=== PATIENT | male | born 1965 | race Caucasian/White ===

== ENCOUNTER 2021-06-28 07:45 | Inpatient (IN) | payer MEDICAID ==
[~2021-06-28] VITALS: Ht 172.7 cm; Wt 84.8 kg
[2021-06-28] VITALS (70 sets, daily range): BP systolic 82–126; BP diastolic 43–95
[~2021-06-28 07:45] MED LIST: AMLO10TA80 MT; FURO-151 MT; GABA-532 PO; GLIP10TA3 PO; HYDR100T26 MT; METF-874 PO
[2021-06-28] MEDS: IPRATROPIUM/ALBUTEROL 0.5-3(2.5)MG/3ML NEB HHN SCH ×4 (08:25→21:20)
[2021-06-28] MEDS ORDERED: IPRATROPIUM/ALBUTEROL 0.5-3(2.5)MG/3ML NEB HHN PRN (08:30)
[2021-06-28] MEDS ORDERED: MIDAZOLAM HCL 100 MG in SODIUM CHLORIDE 0.9% 80 ML IV PRN (09:00)
[2021-06-28] MEDS ORDERED: HEPARIN SODIUM 1,000 UNIT/1ML VIAL IV SCH (09:45)
[2021-06-28] MEDS ORDERED: ONDANSETRON HCL 4MG/2ML INJ IV PRN (10:00)
[2021-06-28] MEDS ORDERED: ACETAMINOPHEN 325MG TABLET PO PRN (10:00)
[2021-06-28] MEDS: MIDAZOLAM 100MG/100ML PMX 100 ML IV PRN (10:03)
[2021-06-28] MEDS: PHENYLEPHRINE 100 MG in DEXT 5% WATER 240 ML IV PRN ×3 (10:04→23:27)
[2021-06-28] MEDS: FENTANYL CITRATE/PF 2,500 MCG in SODIUM CHLORIDE 0.9% 200 ML IV PRN (10:04)
[2021-06-28 10:12] LABS: HEMATOCRIT. 29.9 % (42.0-52.0); HEMOGLOBIN. 9.9 g/dL (14.0-18.0); MEAN CORPUSCULAR HEMOGLOBIN 30.1 pg (28.0-32.0); MEAN CORPUSCULAR VOLUME 90.5 fL (80.0-94.0); MEAN PLATELET VOLUME 7.3 fl (7.4-10.4); PLATELET 256 x1000/uL (130-400); RED BLOOD CELL COUNT 3.31 mill/uL (4.7-6.1)
[2021-06-28] MEDS: BLOOD SUGAR DIAGNOSTIC STRIP TEST SCH ×3 (11:30→20:21)
[2021-06-28] MEDS: INSULIN LISPRO 100 UNITS/ML SUBCUT SCH ×3 (12:00→21:00)
[2021-06-28 12:05] LABS: PLATELET ESTIMATE NORMAL
[2021-06-28] MEDS: PANTOPRAZOLE SODIUM 40 MG/VIAL IV SCH (12:17)
[2021-06-28 12:28] LABS: BG BASE EXCESS -3.5 mmol/L (-2.0-2.0); BG CARBOXYHEMOGLOBIN 0.5 % (0.5-1.5); BG DEOXYHEMOGLOBIN 5.9 % (0.0-5.0); BG FRACTION INSPIRED OXYGEN 100; BG HCO3 ACT 26.1 mmol/L (22.0-26.0); BG METHEMOGLOBIN 0.2 % (0.0-1.5); BG OXYGEN SATURATION 94.1 % (92.0-98.5); BG OXYHEMOGLOBIN 93.4 % (94.0-97.0); BG PCO2 75.6 mmHg (35.0-45.0); BG PH 7.156 (7.350-7.450); BG PO2 82.4 mmHg (75.0-100.0); BG SAMPLE SITE RIGHT RADIAL; BG TOTAL HEMOGLOBIN 10.2 g/dL (12.0-18.0); BG VENT MODE VENT - AC
[2021-06-28] MEDS: DEXTROSE 50% WATER 50ML SYRINGE IV PRN ×2 (12:28→17:30)
[2021-06-28 13:07] LABS: CHLORIDE 112 mEq/L (98-107)
[2021-06-28] MEDS ORDERED: PIPERACILLIN/TAZOBACTAM 3.375 G in DEXTROSE 5% WATER 50 ML IV SCH (14:00)
[2021-06-28] MEDS: PIPERACILLIN/TAZOBACTAM 3.375 G in DEXTROSE 5% WATER 50 ML IV SCH ×2 (14:45→20:20)
[2021-06-28 15:39] LABS: BG BASE EXCESS -0.3 mmol/L (-2.0-2.0); BG CARBOXYHEMOGLOBIN 0.3 % (0.5-1.5); BG DEOXYHEMOGLOBIN 7.7 % (0.0-5.0); BG FRACTION INSPIRED OXYGEN 100; BG HCO3 ACT 27.8 mmol/L (22.0-26.0); BG METHEMOGLOBIN 0.8 % (0.0-1.5); BG OXYGEN SATURATION 92.2 % (92.0-98.5); BG OXYHEMOGLOBIN 91.2 % (94.0-97.0); BG PCO2 68.6 mmHg (35.0-45.0); BG PH 7.226 (7.350-7.450); BG PO2 69.2 mmHg (75.0-100.0); BG SAMPLE SITE RIGHT RADIAL; BG TOTAL HEMOGLOBIN 8.3 g/dL (12.0-18.0); BG VENT MODE VENT - AC
[2021-06-28] MEDS ORDERED: NOREPINEPHRINE 32 MG in DEXT 5% WATER 218 ML IV PRN (20:00)
[2021-06-28] MEDS: DEXT 5%/0.45% NACL 1000ML 1,000 ML IV SCH (20:21)
[2021-06-29] VITALS (96 sets, daily range): BP systolic 89–190; BP diastolic 40–90
[2021-06-29] MEDS: IPRATROPIUM/ALBUTEROL 0.5-3(2.5)MG/3ML NEB HHN SCH ×6 (00:39→20:44)
[2021-06-29] MEDS: FENTANYL CITRATE/PF 2,500 MCG in SODIUM CHLORIDE 0.9% 200 ML IV PRN (05:03)
[2021-06-29] MEDS: PHENYLEPHRINE 100 MG in DEXT 5% WATER 240 ML IV PRN ×2 (05:03→15:51)
[2021-06-29] MEDS: DEXTROSE 50% WATER 50ML SYRINGE IV PRN (05:49)
[2021-06-29] MEDS: INSULIN LISPRO 100 UNITS/ML SUBCUT SCH ×4 (06:10→20:47)
[2021-06-29] MEDS: BLOOD SUGAR DIAGNOSTIC STRIP TEST SCH ×4 (06:10→20:30)
[2021-06-29 06:11] LABS: HEMATOCRIT. 25.6 % (42.0-52.0); HEMOGLOBIN. 8.3 g/dL (14.0-18.0); MEAN CORPUSCULAR HEMOGLOBIN 29.6 pg (28.0-32.0); MEAN CORPUSCULAR VOLUME 91.2 fL (80.0-94.0); MEAN PLATELET VOLUME 8.4 fl (7.4-10.4); PLATELET 184 x1000/uL (130-400); RED BLOOD CELL COUNT 2.81 mill/uL (4.7-6.1); RED CELL DISTRIBUTION WIDTH 16.1 % (11.6-14.6)
[2021-06-29] MEDS ORDERED: LIDOCAINE HCL 1% 10 MG/ML 10ML VIAL ONE (07:43)
[2021-06-29 09:00] LABS: HEPATITIS B SURFACE ANTIGEN NEGATIVE
[2021-06-29 10:50] LABS: PLATELET ESTIMATE NORMAL
[2021-06-29] MEDS ORDERED: VANCOMYCIN 1,750 MG in DEXT 5% WATER 250 ML IV NR (11:00)
[2021-06-29] MEDS: PANTOPRAZOLE SODIUM 40 MG/VIAL IV SCH (12:19)
[2021-06-29] MEDS: PIPERACILLIN/TAZOBACTAM 3.375 G in DEXTROSE 5% WATER 50 ML IV SCH ×2 (12:19→20:30)
[2021-06-29] MEDS: METHYLPREDNISOLONE SOD SUCC 40 MG/ML VIAL IV SCH ×3 (12:19→21:06)
[2021-06-29 12:41] LABS: BG BASE EXCESS -3.3 mmol/L (-2.0-2.0); BG CARBOXYHEMOGLOBIN 0.1 % (0.5-1.5); BG FRACTION INSPIRED OXYGEN 80; BG HCO3 ACT 25.1 mmol/L (22.0-26.0); BG METHEMOGLOBIN 0.1 % (0.0-1.5); BG OXYHEMOGLOBIN 96.8 % (94.0-97.0); BG PCO2 64.1 mmHg (35.0-45.0); BG PO2 94.1 mmHg (75.0-100.0); BG SAMPLE SITE LEFT RADIAL; BG TOTAL HEMOGLOBIN 9.4 g/dL (12.0-18.0); BG VENT MODE VENT - AC
[2021-06-29] MEDS: DEXT 5%/0.45% NACL 1000ML 1,000 ML IV SCH (20:30)
[2021-06-29] MEDS: FENTANYL 2500MCG/250ML PMX 250 ML IV PRN (22:44)
[2021-06-29] MEDS: MIDAZOLAM 100MG/100ML PMX 100 ML IV PRN (22:45)
[2021-06-30] VITALS (85 sets, daily range): BP systolic 73–204; BP diastolic 38–121
[2021-06-30] MEDS: IPRATROPIUM/ALBUTEROL 0.5-3(2.5)MG/3ML NEB HHN SCH ×4 (00:29→20:58)
[2021-06-30] MEDS: BLOOD SUGAR DIAGNOSTIC STRIP TEST SCH ×2 (05:32→21:31)
[2021-06-30 05:50] LABS: HEMATOCRIT. 21.9 % (42.0-52.0); HEMOGLOBIN. 7.1 g/dL (14.0-18.0); MEAN CORPUSCULAR HEMOGLOBIN 29.2 pg (28.0-32.0); MEAN CORPUSCULAR VOLUME 89.4 fL (80.0-94.0); RED BLOOD CELL COUNT 2.45 mill/uL (4.7-6.1); RED CELL DISTRIBUTION WIDTH 16.6 % (11.6-14.6)
[2021-06-30] MEDS: METHYLPREDNISOLONE SOD SUCC 40 MG/ML VIAL IV SCH ×3 (06:10→21:32)
[2021-06-30] MEDS: INSULIN LISPRO 100 UNITS/ML SUBCUT SCH ×4 (06:15→21:00)
[2021-06-30 06:23] LABS: T4 FREE 0.59 ng/dL (0.76-1.46)
[2021-06-30 07:56] LABS: MEAN PLATELET VOLUME 8.4 fl (7.4-10.4); PLATELET 127 x1000/uL (130-400)
[2021-06-30] MEDS: PIPERACILLIN/TAZOBACTAM 3.375 G in DEXTROSE 5% WATER 50 ML IV SCH ×2 (08:50→20:00)
[2021-06-30] MEDS: PANTOPRAZOLE SODIUM 40 MG/VIAL IV SCH (08:51)
[2021-06-30 09:11] LABS: BG BASE EXCESS -2.5 mmol/L (-2.0-2.0); BG CARBOXYHEMOGLOBIN 0.8 % (0.5-1.5); BG DEOXYHEMOGLOBIN 1.8 % (0.0-5.0); BG FRACTION INSPIRED OXYGEN 60; BG HCO3 ACT 23.6 mmol/L (22.0-26.0); BG METHEMOGLOBIN 0.6 % (0.0-1.5); BG OXYGEN SATURATION 98.2 % (92.0-98.5); BG OXYHEMOGLOBIN 96.8 % (94.0-97.0); BG PCO2 47.1 mmHg (35.0-45.0); BG PH 7.317 (7.350-7.450); BG PO2 117.4 mmHg (75.0-100.0); BG SAMPLE SITE RIGHT RADIAL; BG TOTAL HEMOGLOBIN 7.8 g/dL (12.0-18.0); BG VENT MODE VENT - AC
[2021-06-30] MEDS: MIDODRINE HCL 5MG TABLET PO SCH (11:33)
[2021-06-30] MEDS ORDERED: VANCOMYCIN 750MG PMX (XELLIA) 150 ML IV SCH (18:00)
[2021-06-30 18:59] LABS: HEMATOCRIT 26.7 % (42.0-52.0); HEMOGLOBIN 8.6 g/dL (14.0-18.0); MEAN CORPUSCULAR HEMOGLOBIN 29.5 pg (28.0-32.0); MEAN CORPUSCULAR VOLUME 91.4 fL (80.0-94.0); PLATELET 131 x1000/uL (130-400); RED BLOOD CELL COUNT 2.92 mill/uL (4.7-6.1); RED CELL DISTRIBUTION WIDTH 16.2 % (11.6-14.6)
[2021-06-30] MEDS: DEXT 5%/0.45% NACL 1000ML 1,000 ML IV SCH (20:00)
[2021-06-30] MEDS: FENTANYL 2500MCG/250ML PMX 250 ML IV PRN (20:00)
[2021-07-01] VITALS (96 sets, daily range): BP systolic 86–178; BP diastolic 53–96
[2021-07-01] MEDS: IPRATROPIUM/ALBUTEROL 0.5-3(2.5)MG/3ML NEB HHN SCH ×6 (01:01→20:12)
[2021-07-01] MEDS: MIDODRINE HCL 5MG TABLET PO SCH ×5 (02:18→22:00)
[2021-07-01 04:53] LABS: HEMATOCRIT. 24.9 % (42.0-52.0); HEMOGLOBIN. 8.2 g/dL (14.0-18.0); MEAN CORPUSCULAR HEMOGLOBIN 29.1 pg (28.0-32.0); MEAN CORPUSCULAR VOLUME 88.5 fL (80.0-94.0); MEAN PLATELET VOLUME 8.9 fl (7.4-10.4); PLATELET 134 x1000/uL (130-400); RED BLOOD CELL COUNT 2.82 mill/uL (4.7-6.1); RED CELL DISTRIBUTION WIDTH 16.2 % (11.6-14.6)
[2021-07-01] MEDS: METHYLPREDNISOLONE SOD SUCC 40 MG/ML VIAL IV SCH ×3 (05:51→21:09)
[2021-07-01] MEDS: BLOOD SUGAR DIAGNOSTIC STRIP TEST SCH ×4 (06:15→23:41)
[2021-07-01] MEDS: INSULIN LISPRO 100 UNITS/ML SUBCUT SCH ×4 (06:16→23:41)
[2021-07-01 07:04] LABS: PLATELET ESTIMATE NORMAL
[2021-07-01] MEDS: PIPERACILLIN/TAZOBACTAM 3.375 G in DEXTROSE 5% WATER 50 ML IV SCH ×2 (08:30→21:14)
[2021-07-01] MEDS: PANTOPRAZOLE SODIUM 40 MG/VIAL IV SCH (08:30)
[2021-07-01] MEDS: MIDAZOLAM 100MG/100ML PMX 100 ML IV PRN (08:31)
[2021-07-01 09:04] LABS: BG BASE EXCESS -1.3 mmol/L (-2.0-2.0); BG CARBOXYHEMOGLOBIN 0.3 % (0.5-1.5); BG FRACTION INSPIRED OXYGEN 60; BG HCO3 ACT 23.6 mmol/L (22.0-26.0); BG METHEMOGLOBIN 0.1 % (0.0-1.5); BG OXYHEMOGLOBIN 98.6 % (94.0-97.0); BG PCO2 40.3 mmHg (35.0-45.0); BG PH 7.385 (7.350-7.450); BG PO2 158.7 mmHg (75.0-100.0); BG SAMPLE SITE RIGHT RADIAL; BG TOTAL HEMOGLOBIN 8.7 g/dL (12.0-18.0); BG VENT MODE VENT - AC-vc
[2021-07-01] MEDS: FENTANYL 2500MCG/250ML PMX 250 ML IV PRN ×2 (10:00→23:47)
[2021-07-01] MEDS ORDERED: LIDOCAINE HCL 1% 10 MG/ML 10ML VIAL ONE (11:08)
[2021-07-02] VITALS (94 sets, daily range): BP systolic 87–186; BP diastolic 51–99
[2021-07-02] MEDS: IPRATROPIUM/ALBUTEROL 0.5-3(2.5)MG/3ML NEB HHN SCH ×6 (00:15→20:27)
[2021-07-02 05:30] LABS: HEMATOCRIT. 28.7 % (42.0-52.0); HEMOGLOBIN. 9.5 g/dL (14.0-18.0); MEAN CORPUSCULAR HEMOGLOBIN 29.5 pg (28.0-32.0); MEAN CORPUSCULAR VOLUME 89.2 fL (80.0-94.0); MEAN PLATELET VOLUME 9.1 fl (7.4-10.4); PLATELET 131 x1000/uL (130-400); RED BLOOD CELL COUNT 3.21 mill/uL (4.7-6.1); RED CELL DISTRIBUTION WIDTH 15.9 % (11.6-14.6)
[2021-07-02] MEDS: METHYLPREDNISOLONE SOD SUCC 40 MG/ML VIAL IV SCH ×3 (05:30→21:22)
[2021-07-02] MEDS: BLOOD SUGAR DIAGNOSTIC STRIP TEST SCH ×4 (05:31→23:36)
[2021-07-02] MEDS: MIDODRINE HCL 5MG TABLET PO SCH ×3 (05:31→21:22)
[2021-07-02] MEDS: INSULIN LISPRO 100 UNITS/ML SUBCUT SCH ×4 (05:31→23:37)
[2021-07-02 07:44] LABS: BG CARBOXYHEMOGLOBIN 0.1 % (0.5-1.5); BG DEOXYHEMOGLOBIN 1.5 % (0.0-5.0); BG HCO3 ACT 21.6 mmol/L (22.0-26.0); BG METHEMOGLOBIN 0.3 % (0.0-1.5); BG OXYGEN SATURATION 98.5 % (92.0-98.5); BG OXYHEMOGLOBIN 98.1 % (94.0-97.0); BG PCO2 41.6 mmHg (35.0-45.0); BG PH 7.333 (7.350-7.450); BG SAMPLE SITE RIGHT RADIAL; BG TOTAL HEMOGLOBIN 10.8 g/dL (12.0-18.0); BG VENT MODE VENT - AC
[2021-07-02] MEDS ORDERED: VECURONIUM BROMIDE 10 MG/VIAL IV ONE (09:15)
[2021-07-02] MEDS ORDERED: ETOMIDATE 2MG/ML 10ML VIAL IV ONE (09:15)
[2021-07-02] MEDS: PIPERACILLIN/TAZOBACTAM 3.375 G in DEXTROSE 5% WATER 50 ML IV SCH ×2 (09:32→20:49)
[2021-07-02] MEDS: LEVOTHYROXINE SODIUM 100 MCG/ VIAL IV SCH ×2 (09:33→09:34)
[2021-07-02] MEDS: PANTOPRAZOLE SODIUM 40 MG/VIAL IV SCH (09:33)
[2021-07-02] MEDS: INSULIN GLARGINE 100 UNITS/ML SUBCUT SCH (10:27)
[2021-07-02] MEDS: HYDRALAZINE 20MG/ML VIAL IV PRN ×2 (12:57→19:14)
[2021-07-02] MEDS ORDERED: VANCOMYCIN 1.25GM PMX (XELLIA) 250 ML IV NR (14:00)
[2021-07-02] MEDS: MIDAZOLAM 100MG/100ML PMX 100 ML IV PRN (14:39)
[2021-07-02 16:49] LABS: PLATELET ESTIMATE NORMAL
[2021-07-02] MEDS: FENTANYL CITRATE 2,500 MCG in SODIUM CHLORIDE 0.9% 200 ML IV PRN (21:00)
[2021-07-03] VITALS (97 sets, daily range): BP systolic 104–186; BP diastolic 52–95
[2021-07-03] MEDS: HYDRALAZINE 20MG/ML VIAL IV PRN ×2 (02:42→09:25)
[2021-07-03] MEDS: IPRATROPIUM/ALBUTEROL 0.5-3(2.5)MG/3ML NEB HHN SCH ×7 (04:29→23:54)
[2021-07-03] MEDS: MIDAZOLAM HCL 100 MG in SODIUM CHLORIDE 0.9% 100 ML IV PRN (04:43)
[2021-07-03 05:04] LABS: HEMATOCRIT. 35.9 % (42.0-52.0); HEMOGLOBIN. 11.5 g/dL (14.0-18.0); MEAN CORPUSCULAR HEMOGLOBIN 28.9 pg (28.0-32.0); MEAN CORPUSCULAR VOLUME 90.2 fL (80.0-94.0); MEAN PLATELET VOLUME 9.3 fl (7.4-10.4); PLATELET 156 x1000/uL (130-400); RED BLOOD CELL COUNT 3.97 mill/uL (4.7-6.1); RED CELL DISTRIBUTION WIDTH 16.3 % (11.6-14.6)
[2021-07-03] MEDS: MIDODRINE HCL 5MG TABLET PO SCH ×3 (05:39→22:00)
[2021-07-03] MEDS: BLOOD SUGAR DIAGNOSTIC STRIP TEST SCH ×4 (06:01→23:10)
[2021-07-03] MEDS: METHYLPREDNISOLONE SOD SUCC 40 MG/ML VIAL IV SCH ×3 (06:01→22:00)
[2021-07-03] MEDS: INSULIN LISPRO 100 UNITS/ML SUBCUT SCH ×4 (06:02→23:11)
[2021-07-03] MEDS: LEVOTHYROXINE SODIUM 100 MCG/ VIAL IV SCH (09:40)
[2021-07-03] MEDS: PANTOPRAZOLE SODIUM 40 MG/VIAL IV SCH (09:40)
[2021-07-03] MEDS: PIPERACILLIN/TAZOBACTAM 3.375 G in DEXTROSE 5% WATER 50 ML IV SCH ×2 (09:44→21:00)
[2021-07-03 09:55] LABS: BG CARBOXYHEMOGLOBIN 0.7 % (0.5-1.5); BG DEOXYHEMOGLOBIN 2.7 % (0.0-5.0); BG METHEMOGLOBIN 0.2 % (0.0-1.5); BG OXYGEN SATURATION 97.3 % (92.0-98.5); BG OXYHEMOGLOBIN 96.4 % (94.0-97.0); BG PO2 102.6 mmHg (75.0-100.0); BG TOTAL HEMOGLOBIN 12.4 g/dL (12.0-18.0)
[2021-07-03 09:57] LABS: BG BASE EXCESS -4.9 mmol/L (-2.0-2.0); BG FRACTION INSPIRED OXYGEN 40; BG HCO3 ACT 20.1 mmol/L (22.0-26.0); BG PCO2 37.1 mmHg (35.0-45.0); BG PH 7.352 (7.350-7.450); BG SAMPLE SITE RIGHT RADIAL; BG VENT MODE VENT - AC
[2021-07-03] MEDS: INSULIN GLARGINE 100 UNITS/ML SUBCUT SCH (11:25)
[2021-07-03 13:15] LABS: PLATELET ESTIMATE NORMAL
[2021-07-03 16:25] LABS: BG BASE EXCESS -2.5 mmol/L (-2.0-2.0); BG CARBOXYHEMOGLOBIN 0.3 % (0.5-1.5); BG DEOXYHEMOGLOBIN 6.7 % (0.0-5.0); BG FRACTION INSPIRED OXYGEN 35; BG HCO3 ACT 21.8 mmol/L (22.0-26.0); BG METHEMOGLOBIN 0.4 % (0.0-1.5); BG OXYGEN SATURATION 93.3 % (92.0-98.5); BG OXYHEMOGLOBIN 92.6 % (94.0-97.0); BG PCO2 36.3 mmHg (35.0-45.0); BG PH 7.397 (7.350-7.450); BG PO2 65.6 mmHg (75.0-100.0); BG SAMPLE SITE RIGHT RADIAL; BG TOTAL HEMOGLOBIN 12.6 g/dL (12.0-18.0); BG TOTAL RESPIRATORY RATE 45 b/min; BG VENT MODE VENT - AC
[2021-07-03] MEDS: PROPOFOL 10MG/ML 100ML 100 ML IV PRN ×2 (17:00→21:18)
[2021-07-03] MEDS: FENTANYL CITRATE 2,500 MCG in SODIUM CHLORIDE 0.9% 200 ML IV PRN (19:04)
[2021-07-04] VITALS (90 sets, daily range): BP systolic 97–176; BP diastolic 53–81
[2021-07-04] MEDS: PROPOFOL 10MG/ML 100ML 100 ML IV PRN ×6 (01:20→22:49)
[2021-07-04] MEDS: IPRATROPIUM/ALBUTEROL 0.5-3(2.5)MG/3ML NEB HHN SCH ×5 (04:01→21:06)
[2021-07-04 04:15] LABS: HEMATOCRIT. 31.7 % (42.0-52.0); HEMOGLOBIN. 10.3 g/dL (14.0-18.0); MEAN CORPUSCULAR HEMOGLOBIN 29.2 pg (28.0-32.0); MEAN CORPUSCULAR VOLUME 89.6 fL (80.0-94.0); MEAN PLATELET VOLUME 9.3 fl (7.4-10.4); PLATELET 124 x1000/uL (130-400); RED BLOOD CELL COUNT 3.54 mill/uL (4.7-6.1); RED CELL DISTRIBUTION WIDTH 15.6 % (11.6-14.6)
[2021-07-04] MEDS: BLOOD SUGAR DIAGNOSTIC STRIP TEST SCH ×4 (06:00→23:43)
[2021-07-04] MEDS: MIDODRINE HCL 5MG TABLET PO SCH ×3 (06:00→21:17)
[2021-07-04] MEDS: METHYLPREDNISOLONE SOD SUCC 40 MG/ML VIAL IV SCH ×3 (06:00→21:24)
[2021-07-04] MEDS: INSULIN LISPRO 100 UNITS/ML SUBCUT SCH ×4 (06:00→23:47)
[2021-07-04 08:46] LABS: BG BASE EXCESS -3.1 mmol/L (-2.0-2.0); BG CARBOXYHEMOGLOBIN 0.3 % (0.5-1.5); BG DEOXYHEMOGLOBIN 2.8 % (0.0-5.0); BG FRACTION INSPIRED OXYGEN 40; BG HCO3 ACT 21.4 mmol/L (22.0-26.0); BG METHEMOGLOBIN 0.1 % (0.0-1.5); BG OXYGEN SATURATION 97.2 % (92.0-98.5); BG OXYHEMOGLOBIN 96.8 % (94.0-97.0); BG PCO2 36.4 mmHg (35.0-45.0); BG PH 7.388 (7.350-7.450); BG PO2 98.1 mmHg (75.0-100.0); BG SAMPLE SITE RIGHT RADIAL; BG TOTAL HEMOGLOBIN 11.3 g/dL (12.0-18.0); BG VENT MODE VENT - AC
[2021-07-04] MEDS: PANTOPRAZOLE SODIUM 40 MG/VIAL IV SCH (08:48)
[2021-07-04] MEDS: LEVOTHYROXINE SODIUM 100 MCG/ VIAL IV SCH (08:48)
[2021-07-04] MEDS: HYDRALAZINE 20MG/ML VIAL IV PRN (09:15)
[2021-07-04 10:58] LABS: PLATELET ESTIMATE SLIGHTLY DECREASED
[2021-07-04] MEDS: INSULIN GLARGINE 100 UNITS/ML SUBCUT SCH (11:04)
[2021-07-04] MEDS ORDERED: PIPERACILLIN/TAZOBACTAM 3.375 G in DEXTROSE 5% WATER 50 ML IV SCH (13:00)
[2021-07-04] MEDS ORDERED: VANCOMYCIN 1GM PMX (XELLIA) 200 ML IV NR (18:00)
[2021-07-04] MEDS: CEFEPIME 1,000 MG in DEXTROSE 5% WATER 50 ML IV SCH (18:31)
[2021-07-04] MEDS: FENTANYL 2500MCG/250ML PMX 250 ML IV PRN (22:49)
[2021-07-05] VITALS (90 sets, daily range): BP systolic 92–164; BP diastolic 49–93
[2021-07-05] MEDS: IPRATROPIUM/ALBUTEROL 0.5-3(2.5)MG/3ML NEB HHN SCH ×6 (00:35→20:32)
[2021-07-05] MEDS: PROPOFOL 10MG/ML 100ML 100 ML IV PRN ×4 (04:17→20:42)
[2021-07-05] MEDS: MIDODRINE HCL 5MG TABLET PO SCH ×3 (05:48→21:44)
[2021-07-05 05:59] LABS: HEMATOCRIT. 29.1 % (42.0-52.0); HEMOGLOBIN. 9.4 g/dL (14.0-18.0); MEAN CORPUSCULAR HEMOGLOBIN 29.4 pg (28.0-32.0); MEAN CORPUSCULAR VOLUME 91.3 fL (80.0-94.0); MEAN PLATELET VOLUME 9.6 fl (7.4-10.4); PLATELET 120 x1000/uL (130-400); RED BLOOD CELL COUNT 3.19 mill/uL (4.7-6.1); RED CELL DISTRIBUTION WIDTH 16.1 % (11.6-14.6)
[2021-07-05] MEDS: BLOOD SUGAR DIAGNOSTIC STRIP TEST SCH ×3 (06:00→17:59)
[2021-07-05] MEDS: METHYLPREDNISOLONE SOD SUCC 40 MG/ML VIAL IV SCH ×3 (06:19→21:44)
[2021-07-05] MEDS: INSULIN LISPRO 100 UNITS/ML SUBCUT SCH ×3 (06:19→18:00)
[2021-07-05] MEDS: PANTOPRAZOLE SODIUM 40 MG/VIAL IV SCH (09:08)
[2021-07-05 09:22] LABS: BG BASE EXCESS -4.3 mmol/L (-2.0-2.0); BG CARBOXYHEMOGLOBIN 0.9 % (0.5-1.5); BG DEOXYHEMOGLOBIN 2.2 % (0.0-5.0); BG FRACTION INSPIRED OXYGEN 35; BG HCO3 ACT 20.7 mmol/L (22.0-26.0); BG METHEMOGLOBIN 0.4 % (0.0-1.5); BG OXYGEN SATURATION 97.8 % (92.0-98.5); BG OXYHEMOGLOBIN 96.5 % (94.0-97.0); BG PCO2 37.9 mmHg (35.0-45.0); BG PH 7.356 (7.350-7.450); BG PO2 105.4 mmHg (75.0-100.0); BG SAMPLE SITE RIGHT RADIAL; BG TOTAL HEMOGLOBIN 11.1 g/dL (12.0-18.0); BG VENT MODE VENT - AC
[2021-07-05] MEDS: INSULIN GLARGINE 100 UNITS/ML SUBCUT SCH (09:50)
[2021-07-05] MEDS: LEVOTHYROXINE SODIUM 100 MCG/ VIAL IV SCH (10:08)
[2021-07-05 10:47] LABS: PLATELET ESTIMATE NORMAL
[2021-07-05] MEDS ORDERED: HEPARIN SODIUM 1,000 UNIT/1ML VIAL IV SCH (13:30)
[2021-07-05 15:54] LABS: BG BASE EXCESS -1.5 mmol/L (-2.0-2.0); BG CARBOXYHEMOGLOBIN 0.3 % (0.5-1.5); BG DEOXYHEMOGLOBIN 3.1 % (0.0-5.0); BG FRACTION INSPIRED OXYGEN 35; BG HCO3 ACT 23.2 mmol/L (22.0-26.0); BG METHEMOGLOBIN 0.1 % (0.0-1.5); BG OXYGEN SATURATION 96.9 % (92.0-98.5); BG OXYHEMOGLOBIN 96.5 % (94.0-97.0); BG PCO2 38.8 mmHg (35.0-45.0); BG PH 7.394 (7.350-7.450); BG PO2 90.9 mmHg (75.0-100.0); BG SAMPLE SITE RIGHT RADIAL; BG TOTAL HEMOGLOBIN 10.2 g/dL (12.0-18.0); BG VENT MODE VENT - AC
[2021-07-05] MEDS: CEFEPIME 1,000 MG in DEXTROSE 5% WATER 50 ML IV SCH (18:01)
[2021-07-05] MEDS: FENTANYL 2500MCG/250ML PMX 250 ML IV PRN (21:44)
[2021-07-05] MEDS: MIDAZOLAM HCL 100 MG in SODIUM CHLORIDE 0.9% 100 ML IV PRN (23:19)
[2021-07-06] VITALS (93 sets, daily range): BP systolic 86–166; BP diastolic 49–102
[2021-07-06] MEDS: IPRATROPIUM/ALBUTEROL 0.5-3(2.5)MG/3ML NEB HHN SCH ×6 (00:21→20:26)
[2021-07-06] MEDS: PROPOFOL 10MG/ML 100ML 100 ML IV PRN ×2 (01:56→08:26)
[2021-07-06] MEDS ORDERED: DEXTROSE 50% WATER 50ML SYRINGE IV ONE (03:24)
[2021-07-06] MEDS: DEXTROSE 50% WATER 50ML SYRINGE IV PRN ×2 (03:30→10:26)
[2021-07-06] MEDS: INSULIN LISPRO 100 UNITS/ML SUBCUT SCH ×4 (06:00→17:26)
[2021-07-06] MEDS: MIDODRINE HCL 5MG TABLET PO SCH ×3 (06:00→22:37)
[2021-07-06] MEDS: BLOOD SUGAR DIAGNOSTIC STRIP TEST SCH ×4 (06:10→17:26)
[2021-07-06] MEDS: METHYLPREDNISOLONE SOD SUCC 40 MG/ML VIAL IV SCH ×3 (06:11→22:37)
[2021-07-06 06:23] LABS: HEMOGLOBIN. 9.6 g/dL (14.0-18.0); MEAN CORPUSCULAR HEMOGLOBIN 29.3 pg (28.0-32.0); MEAN CORPUSCULAR VOLUME 91.1 fL (80.0-94.0); MEAN PLATELET VOLUME 9.3 fl (7.4-10.4); PLATELET 161 x1000/uL (130-400); RED BLOOD CELL COUNT 3.29 mill/uL (4.7-6.1); RED CELL DISTRIBUTION WIDTH 15.9 % (11.6-14.6)
[2021-07-06 07:42] LABS: BG CARBOXYHEMOGLOBIN 0.3 % (0.5-1.5); BG DEOXYHEMOGLOBIN 4.8 % (0.0-5.0); BG HCO3 ACT 24.3 mmol/L (22.0-26.0); BG METHEMOGLOBIN 0.3 % (0.0-1.5); BG OXYGEN SATURATION 95.2 % (92.0-98.5); BG OXYHEMOGLOBIN 94.6 % (94.0-97.0); BG PCO2 54.2 mmHg (35.0-45.0); BG PH 7.269 (7.350-7.450); BG SAMPLE SITE RIGHT BRACHIAL; BG TOTAL HEMOGLOBIN 10.5 g/dL (12.0-18.0); BG VENT MODE VENT - AC
[2021-07-06 07:54] LABS: PLATELET ESTIMATE NORMAL
[2021-07-06] MEDS: FENTANYL 2500MCG/250ML PMX 250 ML IV PRN (08:04)
[2021-07-06] MEDS: INSULIN GLARGINE 100 UNITS/ML SUBCUT SCH (10:00)
[2021-07-06] MEDS: PANTOPRAZOLE SODIUM 40 MG/VIAL IV SCH (10:10)
[2021-07-06] MEDS: LEVOTHYROXINE SODIUM 100 MCG/ VIAL IV SCH (12:34)
[2021-07-06] MEDS: CEFEPIME 1,000 MG in DEXTROSE 5% WATER 50 ML IV SCH (17:05)
[2021-07-07] VITALS (96 sets, daily range): BP systolic 104–163; BP diastolic 59–78
[2021-07-07] MEDS: BLOOD SUGAR DIAGNOSTIC STRIP TEST SCH ×4 (00:06→17:57)
[2021-07-07] MEDS: INSULIN LISPRO 100 UNITS/ML SUBCUT SCH ×4 (00:15→17:57)
[2021-07-07] MEDS: IPRATROPIUM/ALBUTEROL 0.5-3(2.5)MG/3ML NEB HHN SCH ×6 (00:24→20:16)
[2021-07-07] MEDS: METHYLPREDNISOLONE SOD SUCC 40 MG/ML VIAL IV SCH ×3 (06:08→22:21)
[2021-07-07] MEDS: MIDODRINE HCL 5MG TABLET PO SCH ×3 (06:09→22:21)
[2021-07-07] MEDS: AZITHROMYCIN 500 MG in DEXT 5% WATER 250 ML IV SCH (06:09)
[2021-07-07 07:49] LABS: BG BASE EXCESS -2.4 mmol/L (-2.0-2.0); BG FRACTION INSPIRED OXYGEN 35; BG HCO3 ACT 23.8 mmol/L (22.0-26.0); BG METHEMOGLOBIN 0.2 % (0.0-1.5); BG OXYGEN SATURATION 94.9 % (92.0-98.5); BG OXYHEMOGLOBIN 93.8 % (94.0-97.0); BG PCO2 47.1 mmHg (35.0-45.0); BG PH 7.322 (7.350-7.450); BG PO2 73.5 mmHg (75.0-100.0); BG SAMPLE SITE RIGHT BRACHIAL; BG TOTAL HEMOGLOBIN 11.2 g/dL (12.0-18.0); BG VENT MODE VENT - CPAP
[2021-07-07] MEDS: PANTOPRAZOLE SODIUM 40 MG/VIAL IV SCH (08:43)
[2021-07-07] MEDS: LEVOTHYROXINE SODIUM 100 MCG/ VIAL IV SCH (08:43)
[2021-07-07] MEDS: INSULIN GLARGINE 100 UNITS/ML SUBCUT SCH (09:51)
[2021-07-07] MEDS ORDERED: VANCOMYCIN 1.25GM PMX (XELLIA) 250 ML IV SCH ×2 (10:00→18:00)
[2021-07-07 11:42] LABS: HEMATOCRIT. 31.8 % (42.0-52.0); HEMOGLOBIN. 10.1 g/dL (14.0-18.0); MEAN CORPUSCULAR HEMOGLOBIN 29.2 pg (28.0-32.0); MEAN CORPUSCULAR VOLUME 92.1 fL (80.0-94.0); PLATELET 227 x1000/uL (130-400); RED BLOOD CELL COUNT 3.45 mill/uL (4.7-6.1); RED CELL DISTRIBUTION WIDTH 16.2 % (11.6-14.6)
[2021-07-07 13:58] LABS: PLATELET ESTIMATE NORMAL
[2021-07-07] MEDS ORDERED: HEPARIN SODIUM 1,000 UNIT/1ML VIAL IV NR (15:00)
[2021-07-07 15:52] LABS: BG BASE EXCESS -4.5 mmol/L (-2.0-2.0); BG CARBOXYHEMOGLOBIN 0.7 % (0.5-1.5); BG DEOXYHEMOGLOBIN 8.1 % (0.0-5.0); BG FRACTION INSPIRED OXYGEN 35; BG HCO3 ACT 23.4 mmol/L (22.0-26.0); BG METHEMOGLOBIN 0.4 % (0.0-1.5); BG OXYGEN SATURATION 91.8 % (92.0-98.5); BG OXYHEMOGLOBIN 90.8 % (94.0-97.0); BG PCO2 56.4 mmHg (35.0-45.0); BG PH 7.235 (7.350-7.450); BG PO2 72.1 mmHg (75.0-100.0); BG SAMPLE SITE LEFT RADIAL; BG TOTAL HEMOGLOBIN 11.4 g/dL (12.0-18.0); BG VENT MODE VENT - CPAP
[2021-07-07] MEDS: CEFEPIME 1,000 MG in DEXTROSE 5% WATER 50 ML IV SCH (17:47)
[2021-07-07] MEDS: FENTANYL 2500MCG/250ML PMX 250 ML IV PRN (19:58)
[2021-07-08] VITALS (58 sets, daily range): BP systolic 120–183; BP diastolic 59–86
[2021-07-08] MEDS: BLOOD SUGAR DIAGNOSTIC STRIP TEST SCH ×5 (00:22→23:04)
[2021-07-08] MEDS: IPRATROPIUM/ALBUTEROL 0.5-3(2.5)MG/3ML NEB HHN SCH ×5 (00:25→20:05)
[2021-07-08] MEDS: INSULIN LISPRO 100 UNITS/ML SUBCUT SCH ×5 (00:30→23:11)
[2021-07-08] MEDS: MIDODRINE HCL 5MG TABLET PO SCH (06:00)
[2021-07-08] MEDS: AZITHROMYCIN 500 MG in DEXT 5% WATER 250 ML IV SCH (06:11)
[2021-07-08] MEDS: METHYLPREDNISOLONE SOD SUCC 40 MG/ML VIAL IV SCH ×3 (06:11→23:11)
[2021-07-08] MEDS: LEVOTHYROXINE SODIUM 100 MCG/ VIAL IV SCH (08:43)
[2021-07-08] MEDS: PANTOPRAZOLE SODIUM 40 MG/VIAL IV SCH (08:43)
[2021-07-08] MEDS: HYDRALAZINE 20MG/ML VIAL IV PRN (08:53)
[2021-07-08 10:07] LABS: BG CARBOXYHEMOGLOBIN 0.3 % (0.5-1.5); BG DEOXYHEMOGLOBIN 3.4 % (0.0-5.0); BG HCO3 ACT 23.4 mmol/L (22.0-26.0); BG METHEMOGLOBIN 0.3 % (0.0-1.5); BG OXYGEN SATURATION 96.6 % (92.0-98.5); BG PCO2 47.7 mmHg (35.0-45.0); BG PH 7.308 (7.350-7.450); BG PO2 95.9 mmHg (75.0-100.0); BG SAMPLE SITE RIGHT RADIAL; BG TOTAL HEMOGLOBIN 10.6 g/dL (12.0-18.0); BG VENT MODE MASK - CPAP
[2021-07-08 11:03] LABS: HEMATOCRIT. 29.8 % (42.0-52.0); HEMOGLOBIN. 9.6 g/dL (14.0-18.0); MEAN CORPUSCULAR HEMOGLOBIN 29.5 pg (28.0-32.0); MEAN CORPUSCULAR VOLUME 91.9 fL (80.0-94.0); MEAN PLATELET VOLUME 8.4 fl (7.4-10.4); PLATELET 209 x1000/uL (130-400); RED BLOOD CELL COUNT 3.24 mill/uL (4.7-6.1)
[2021-07-08] MEDS: INSULIN GLARGINE 100 UNITS/ML SUBCUT SCH (11:06)
[2021-07-08 11:36] LABS: PLATELET ESTIMATE NORMAL
[2021-07-08] MEDS ORDERED: IOHEXOL-350 100 ML BOTTLE ONE (11:38)
[2021-07-08 12:06] LABS: BG BASE EXCESS -3.5 mmol/L (-2.0-2.0); BG CARBOXYHEMOGLOBIN 0.3 % (0.5-1.5); BG DEOXYHEMOGLOBIN 3.7 % (0.0-5.0); BG FRACTION INSPIRED OXYGEN 35; BG METHEMOGLOBIN 0.3 % (0.0-1.5); BG OXYGEN SATURATION 96.3 % (92.0-98.5); BG OXYHEMOGLOBIN 95.7 % (94.0-97.0); BG PCO2 55.4 mmHg (35.0-45.0); BG PH 7.254 (7.350-7.450); BG PO2 95.8 mmHg (75.0-100.0); BG SAMPLE SITE LEFT RADIAL; BG TOTAL HEMOGLOBIN 10.6 g/dL (12.0-18.0); BG VENT MODE VENT - CPAP
[2021-07-08] MEDS ORDERED: ENOXAPARIN 100MG/ML SYR SUBCUT SCH (13:00)
[2021-07-08] MEDS ORDERED: HYDRALAZINE 20MG/ML VIAL IV PRN (14:45)
[2021-07-08] MEDS: LOSARTAN POTASSIUM 100 MG TABLET PO SCH (14:48)
[2021-07-08] MEDS: AMLODIPINE 10MG TABLET PO SCH (14:48)
[2021-07-08] MEDS: CEFEPIME 1,000 MG in DEXTROSE 5% WATER 50 ML IV SCH (17:47)
[2021-07-08 19:15] LABS: INR 1.2; PROTHROMBIN TIME 12.6 sec (9.6-11.0)
[2021-07-09] VITALS (44 sets, daily range): BP systolic 97–191; BP diastolic 56–93
[2021-07-09] MEDS: IPRATROPIUM/ALBUTEROL 0.5-3(2.5)MG/3ML NEB HHN SCH ×7 (00:46→23:46)
[2021-07-09] MEDS: INSULIN LISPRO 100 UNITS/ML SUBCUT SCH ×4 (05:22→23:10)
[2021-07-09] MEDS: BLOOD SUGAR DIAGNOSTIC STRIP TEST SCH ×4 (05:22→23:10)
[2021-07-09] MEDS: METHYLPREDNISOLONE SOD SUCC 40 MG/ML VIAL IV SCH ×2 (06:07→18:24)
[2021-07-09] MEDS: AZITHROMYCIN 500 MG in DEXT 5% WATER 250 ML IV SCH (06:07)
[2021-07-09 06:45] LABS: HEMATOCRIT. 33.1 % (42.0-52.0); HEMOGLOBIN. 10.9 g/dL (14.0-18.0); MEAN CORPUSCULAR HEMOGLOBIN 29.4 pg (28.0-32.0); MEAN CORPUSCULAR VOLUME 89.4 fL (80.0-94.0); MEAN PLATELET VOLUME 8.6 fl (7.4-10.4); PLATELET 236 x1000/uL (130-400); RED CELL DISTRIBUTION WIDTH 16.1 % (11.6-14.6)
[2021-07-09 06:51] LABS: INR 1.2; PROTHROMBIN TIME 12.4 sec (9.6-11.0)
[2021-07-09] MEDS: AMLODIPINE 10MG TABLET PO SCH (08:51)
[2021-07-09] MEDS: PANTOPRAZOLE SODIUM 40 MG/VIAL IV SCH (08:51)
[2021-07-09] MEDS: LOSARTAN POTASSIUM 100 MG TABLET PO SCH (08:51)
[2021-07-09] MEDS: INSULIN GLARGINE 100 UNITS/ML SUBCUT SCH (08:52)
[2021-07-09] MEDS: LEVOTHYROXINE SODIUM 100 MCG/ VIAL IV SCH (09:14)
[2021-07-09 11:48] LABS: PLATELET ESTIMATE NORMAL
[2021-07-09] MEDS: CLONIDINE 0.2MG TABLET PO SCH ×2 (12:02→21:12)
[2021-07-09] MEDS ORDERED: VANCOMYCIN 1.5GM PMX (XELLIA) 300 ML IV NR (14:00)
[2021-07-09] MEDS: ACETAMINOPHEN 650MG/20.3ML UDC PO PRN (18:24)
[2021-07-09] MEDS: CEFEPIME 1,000 MG in DEXTROSE 5% WATER 50 ML IV SCH (18:24)
[2021-07-09] MEDS ORDERED: NALOXONE HCL 0.4MG/ML VIAL IV PRN (20:45)
[2021-07-10] VITALS (27 sets, daily range): BP systolic 88–156; BP diastolic 50–83
[2021-07-10] MEDS: IPRATROPIUM/ALBUTEROL 0.5-3(2.5)MG/3ML NEB HHN SCH ×5 (03:45→20:09)
[2021-07-10] MEDS: AZITHROMYCIN 500 MG in DEXT 5% WATER 250 ML IV SCH (05:21)
[2021-07-10] MEDS: BLOOD SUGAR DIAGNOSTIC STRIP TEST SCH ×3 (05:58→17:19)
[2021-07-10] MEDS: INSULIN LISPRO 100 UNITS/ML SUBCUT SCH ×3 (06:03→17:19)
[2021-07-10 06:17] LABS: HEMATOCRIT. 28.7 % (42.0-52.0); HEMOGLOBIN. 9.5 g/dL (14.0-18.0); MEAN CORPUSCULAR HEMOGLOBIN 29.7 pg (28.0-32.0); MEAN PLATELET VOLUME 8.3 fl (7.4-10.4); PLATELET 196 x1000/uL (130-400); RED BLOOD CELL COUNT 3.19 mill/uL (4.7-6.1); RED CELL DISTRIBUTION WIDTH 15.8 % (11.6-14.6)
[2021-07-10 07:21] LABS: PLATELET ESTIMATE NORMAL
[2021-07-10] MEDS: CLONIDINE 0.2MG TABLET PO SCH ×2 (08:56→20:19)
[2021-07-10] MEDS: AMLODIPINE 10MG TABLET PO SCH (08:56)
[2021-07-10] MEDS: PANTOPRAZOLE SODIUM 40 MG/VIAL IV SCH (08:56)
[2021-07-10] MEDS: LOSARTAN POTASSIUM 100 MG TABLET PO SCH (08:56)
[2021-07-10] MEDS: METHYLPREDNISOLONE SOD SUCC 40 MG/ML VIAL IV SCH (08:56)
[2021-07-10] MEDS: LEVOTHYROXINE SODIUM 100 MCG/ VIAL IV SCH (08:57)
[2021-07-10] MEDS: ACETAMINOPHEN 650MG/20.3ML UDC PO PRN ×2 (09:08→17:04)
[2021-07-10] MEDS: INSULIN GLARGINE 100 UNITS/ML SUBCUT SCH (10:00)
[2021-07-10] MEDS: BUDESONIDE 0.5MG/2ML NEB HHN SCH ×2 (11:38→20:09)
[2021-07-10] MEDS: DEXTROSE 50% WATER 50ML SYRINGE IV PRN (11:51)
[2021-07-10] MEDS: ENOXAPARIN 100MG/ML SYR SUBCUT SCH (12:00)
[2021-07-10] MEDS: CEFEPIME 1,000 MG in DEXTROSE 5% WATER 50 ML IV SCH (17:18)
[2021-07-11] VITALS (19 sets, daily range): BP systolic 107–140; BP diastolic 55–68
[2021-07-11] MEDS: IPRATROPIUM/ALBUTEROL 0.5-3(2.5)MG/3ML NEB HHN SCH ×6 (00:08→20:32)
[2021-07-11] MEDS: AZITHROMYCIN 500 MG in DEXT 5% WATER 250 ML IV SCH (06:04)
[2021-07-11] MEDS: BLOOD SUGAR DIAGNOSTIC STRIP TEST SCH ×5 (06:05→23:19)
[2021-07-11 06:10] LABS: HEMOGLOBIN. 9.3 g/dL (14.0-18.0); MEAN CORPUSCULAR VOLUME 93.4 fL (80.0-94.0); MEAN PLATELET VOLUME 8.3 fl (7.4-10.4); PLATELET 192 x1000/uL (130-400); RED CELL DISTRIBUTION WIDTH 16.1 % (11.6-14.6)
[2021-07-11] MEDS: INSULIN LISPRO 100 UNITS/ML SUBCUT SCH ×5 (06:14→23:19)
[2021-07-11 07:50] LABS: PLATELET ESTIMATE NORMAL
[2021-07-11] MEDS: AMLODIPINE 10MG TABLET PO SCH (08:31)
[2021-07-11] MEDS: PANTOPRAZOLE SODIUM 40 MG/VIAL IV SCH (08:31)
[2021-07-11] MEDS: LOSARTAN POTASSIUM 100 MG TABLET PO SCH (08:31)
[2021-07-11] MEDS: CLONIDINE 0.2MG TABLET PO SCH ×2 (08:32→21:16)
[2021-07-11] MEDS: BUDESONIDE 0.5MG/2ML NEB HHN SCH ×2 (08:37→20:32)
[2021-07-11] MEDS: LEVOTHYROXINE SODIUM 100 MCG/ VIAL IV SCH (10:50)
[2021-07-11] MEDS: INSULIN GLARGINE 100 UNITS/ML SUBCUT SCH (10:52)
[2021-07-11] MEDS: ENOXAPARIN 100MG/ML SYR SUBCUT SCH (13:47)
[2021-07-11] MEDS: CEFEPIME 1,000 MG in DEXTROSE 5% WATER 50 ML IV SCH (17:27)
[2021-07-11] MEDS: ACETAMINOPHEN 650MG/20.3ML UDC PO PRN (17:28)
[2021-07-12] VITALS (12 sets, daily range): BP systolic 113–135; BP diastolic 58–71
[2021-07-12] MEDS: IPRATROPIUM/ALBUTEROL 0.5-3(2.5)MG/3ML NEB HHN SCH ×6 (00:36→21:16)
[2021-07-12] MEDS: INSULIN LISPRO 100 UNITS/ML SUBCUT SCH ×3 (05:02→17:05)
[2021-07-12] MEDS: BLOOD SUGAR DIAGNOSTIC STRIP TEST SCH ×3 (05:02→17:05)
[2021-07-12] MEDS: AZITHROMYCIN 500 MG in DEXT 5% WATER 250 ML IV SCH (05:03)
[2021-07-12] MEDS: BUDESONIDE 0.5MG/2ML NEB HHN SCH ×2 (08:25→21:16)
[2021-07-12] MEDS: LEVOTHYROXINE SODIUM 100 MCG/ VIAL IV SCH (08:32)
[2021-07-12] MEDS: PANTOPRAZOLE SODIUM 40 MG/VIAL IV SCH (08:32)
[2021-07-12] MEDS: ACETAMINOPHEN 650MG/20.3ML UDC PO PRN (08:32)
[2021-07-12] MEDS: MORPHINE SULFATE 2 MG/ML CPJ (NOT FOR IM USE) IV PRN ×2 (08:47→17:05)
[2021-07-12] MEDS: CLONIDINE 0.2MG TABLET PO SCH ×2 (08:52→21:50)
[2021-07-12] MEDS: AMLODIPINE 10MG TABLET PO SCH (08:53)
[2021-07-12] MEDS: LOSARTAN POTASSIUM 100 MG TABLET PO SCH (08:53)
[2021-07-12] MEDS: INSULIN GLARGINE 100 UNITS/ML SUBCUT SCH (10:00)
[2021-07-12] MEDS: ENOXAPARIN 100MG/ML SYR SUBCUT SCH (12:00)
[2021-07-12] MEDS: CEFEPIME 1,000 MG in DEXTROSE 5% WATER 50 ML IV SCH (17:05)
[2021-07-13] VITALS (12 sets, daily range): BP systolic 110–138; BP diastolic 58–72
[2021-07-13] MEDS: IPRATROPIUM/ALBUTEROL 0.5-3(2.5)MG/3ML NEB HHN SCH ×6 (00:26→20:57)
[2021-07-13] MEDS: BLOOD SUGAR DIAGNOSTIC STRIP TEST SCH ×4 (00:34→17:29)
[2021-07-13] MEDS: MORPHINE SULFATE 2 MG/ML CPJ (NOT FOR IM USE) IV PRN ×4 (02:06→23:59)
[2021-07-13] MEDS: INSULIN LISPRO 100 UNITS/ML SUBCUT SCH ×4 (06:00→17:41)
[2021-07-13 06:31] LABS: BASOPHILS % 0.4 % (0.0-2.0); EOSINOPHILS % 0.2 % (0.0-5.0); HEMOGLOBIN. 7.8 g/dL (14.0-18.0); LYMPHOCYTES % 7.2 % (20.0-50.0); MEAN CORPUSCULAR HEMOGLOBIN 30.1 pg (28.0-32.0); MEAN PLATELET VOLUME 8.8 fl (7.4-10.4); MONOCYTES % 6.1 % (2.0-8.0); NEUTROPHILS % 86.1 % (40.0-76.0); PLATELET 183 x1000/uL (130-400); RED BLOOD CELL COUNT 2.58 mill/uL (4.7-6.1); RED CELL DISTRIBUTION WIDTH 15.5 % (11.6-14.6)
[2021-07-13 06:33] LABS: INR 1.2; PROTHROMBIN TIME 12.9 sec (9.6-11.0)
[2021-07-13] MEDS: BUDESONIDE 0.5MG/2ML NEB HHN SCH (08:50)
[2021-07-13] MEDS: AMLODIPINE 10MG TABLET PO SCH (09:00)
[2021-07-13] MEDS: CLONIDINE 0.2MG TABLET PO SCH ×2 (09:00→21:27)
[2021-07-13] MEDS: LOSARTAN POTASSIUM 100 MG TABLET PO SCH (09:00)
[2021-07-13] MEDS: LEVOTHYROXINE SODIUM 100 MCG/ VIAL IV SCH (09:00)
[2021-07-13] MEDS ORDERED: DIPHENHYDRAMINE 50MG/ML VIAL ONE (09:53)
[2021-07-13] MEDS ORDERED: MIDAZOLAM HCL 5 MG/5 ML VIAL ONE (09:53)
[2021-07-13] MEDS ORDERED: FENTANYL CITRATE/PF 50MCG/ML 2ML VIAL ONE (09:53)
[2021-07-13] MEDS: PANTOPRAZOLE SODIUM 40 MG/VIAL IV SCH (10:31)
[2021-07-13] MEDS ORDERED: FENTANYL CITRATE/PF 50MCG/ML 2ML VIAL IV PRN (10:46)
[2021-07-13] MEDS ORDERED: MIDAZOLAM HCL 5 MG/5 ML VIAL IV PRN (10:47)
[2021-07-13] MEDS: DEXTROSE 50% WATER 50ML SYRINGE IV PRN ×2 (14:01→18:55)
[2021-07-13] MEDS: METOCLOPRAMIDE HCL 10MG/2ML VIAL IV SCH ×3 (14:01→23:57)
[2021-07-13] MEDS: CEFEPIME 1,000 MG in DEXTROSE 5% WATER 50 ML IV SCH (18:52)
[2021-07-14] VITALS (16 sets, daily range): BP systolic 101–143; BP diastolic 56–70
[2021-07-14] MEDS: IPRATROPIUM/ALBUTEROL 0.5-3(2.5)MG/3ML NEB HHN SCH ×5 (01:38→20:15)
[2021-07-14] MEDS: MORPHINE SULFATE 2 MG/ML CPJ (NOT FOR IM USE) IV PRN ×2 (04:19→13:30)
[2021-07-14] MEDS: METOCLOPRAMIDE HCL 10MG/2ML VIAL IV SCH ×4 (05:19→23:29)
[2021-07-14] MEDS: INSULIN LISPRO 100 UNITS/ML SUBCUT SCH ×5 (05:28→23:26)
[2021-07-14] MEDS: BLOOD SUGAR DIAGNOSTIC STRIP TEST SCH ×5 (05:28→23:26)
[2021-07-14] MEDS: DEXTROSE 50% WATER 50ML SYRINGE IV PRN (05:29)
[2021-07-14 06:10] LABS: BASOPHILS % 0.8 % (0.0-2.0); EOSINOPHILS % 0.4 % (0.0-5.0); LYMPHOCYTES % 9.6 % (20.0-50.0); MEAN CORPUSCULAR VOLUME 90.6 fL (80.0-94.0); MEAN PLATELET VOLUME 8.4 fl (7.4-10.4); NEUTROPHILS % 81.2 % (40.0-76.0); PLATELET 179 x1000/uL (130-400); RED BLOOD CELL COUNT 2.29 mill/uL (4.7-6.1); RED CELL DISTRIBUTION WIDTH 15.4 % (11.6-14.6)
[2021-07-14 06:14] LABS: INR 1.2
[2021-07-14 06:21] LABS: HEMATOCRIT. 20.8 % (42.0-52.0); HEMOGLOBIN. 6.9 g/dL (14.0-18.0)
[2021-07-14] MEDS: PANTOPRAZOLE SODIUM 40 MG/VIAL IV SCH ×3 (08:40→21:18)
[2021-07-14] MEDS: CLONIDINE 0.2MG TABLET PO SCH ×2 (08:40→21:18)
[2021-07-14] MEDS: LEVOTHYROXINE SODIUM 100 MCG/ VIAL IV SCH (08:40)
[2021-07-14] MEDS: LOSARTAN POTASSIUM 100 MG TABLET PO SCH (08:41)
[2021-07-14] MEDS: AMLODIPINE 10MG TABLET PO SCH (08:41)
[2021-07-14] MEDS: ENOXAPARIN 100MG/ML SYR SUBCUT SCH (12:00)
[2021-07-14] MEDS: CEFEPIME 1,000 MG in DEXTROSE 5% WATER 50 ML IV SCH (17:54)
[2021-07-14 19:34] LABS: HEMATOCRIT. 25.9 % (42.0-52.0); HEMOGLOBIN. 8.6 g/dL (14.0-18.0); MEAN CORPUSCULAR HEMOGLOBIN 29.8 pg (28.0-32.0); MEAN CORPUSCULAR VOLUME 89.6 fL (80.0-94.0); MEAN PLATELET VOLUME 8.2 fl (7.4-10.4); PLATELET 182 x1000/uL (130-400); RED BLOOD CELL COUNT 2.89 mill/uL (4.7-6.1); RED CELL DISTRIBUTION WIDTH 16.1 % (11.6-14.6)
[2021-07-14] MEDS ORDERED: EPOETIN ALFA 4000UNITS/ML VIAL SUBCUT NR (21:00)
[2021-07-14 21:03] LABS: PLATELET ESTIMATE NORMAL
[2021-07-14] MEDS: HYDROCODONE/ACETAMINOPHEN 5/325MG TABLET PO PRN (23:26)
[2021-07-15] VITALS (12 sets, daily range): BP systolic 112–136; BP diastolic 54–74
[2021-07-15] MEDS: IPRATROPIUM/ALBUTEROL 0.5-3(2.5)MG/3ML NEB HHN SCH ×6 (00:36→20:56)
[2021-07-15] MEDS: BLOOD SUGAR DIAGNOSTIC STRIP TEST SCH ×3 (05:18→18:29)
[2021-07-15] MEDS: INSULIN LISPRO 100 UNITS/ML SUBCUT SCH ×2 (05:18→18:00)
[2021-07-15] MEDS: METOCLOPRAMIDE HCL 10MG/2ML VIAL IV SCH (05:18)
[2021-07-15 06:26] LABS: BASOPHILS % 0.5 % (0.0-2.0); EOSINOPHILS % 0.4 % (0.0-5.0); HEMATOCRIT. 24.2 % (42.0-52.0); HEMOGLOBIN. 8.1 g/dL (14.0-18.0); LYMPHOCYTES % 9.5 % (20.0-50.0); MEAN CORPUSCULAR HEMOGLOBIN 29.3 pg (28.0-32.0); MEAN CORPUSCULAR VOLUME 87.6 fL (80.0-94.0); MEAN PLATELET VOLUME 8.8 fl (7.4-10.4); MONOCYTES % 7.5 % (2.0-8.0); NEUTROPHILS % 82.1 % (40.0-76.0); PLATELET 179 x1000/uL (130-400); RED BLOOD CELL COUNT 2.76 mill/uL (4.7-6.1); RED CELL DISTRIBUTION WIDTH 15.9 % (11.6-14.6)
[2021-07-15 06:34] LABS: INR 1.2; PROTHROMBIN TIME 12.5 sec (9.6-11.0)
[2021-07-15] MEDS: AMLODIPINE 10MG TABLET PO SCH (10:11)
[2021-07-15] MEDS: LOSARTAN POTASSIUM 100 MG TABLET PO SCH (10:11)
[2021-07-15] MEDS: ACETAMINOPHEN 650MG/20.3ML UDC PO PRN ×2 (10:11→22:48)
[2021-07-15] MEDS: LEVOTHYROXINE SODIUM 100 MCG/ VIAL IV SCH (10:19)
[2021-07-15] MEDS: PANTOPRAZOLE SODIUM 40 MG/VIAL IV SCH ×2 (10:19→18:34)
[2021-07-15] MEDS ORDERED: ENOXAPARIN 100MG/ML SYR SUBCUT SCH (12:00)
[2021-07-15] MEDS ORDERED: NALOXONE HCL 0.4MG/ML VIAL IV PRN (16:15)
[2021-07-15] MEDS: CEFEPIME 1,000 MG in DEXTROSE 5% WATER 50 ML IV SCH (18:34)
[2021-07-15] MEDS: HYDROCODONE/ACETAMINOPHEN 5/325MG TABLET PO PRN (20:23)
[2021-07-15] MEDS: CLONIDINE 0.2MG TABLET PO SCH ×2 (20:23→20:24)
[2021-07-16] VITALS: BP 110/59
[2021-07-16] MEDS: IPRATROPIUM/ALBUTEROL 0.5-3(2.5)MG/3ML NEB HHN SCH (00:51)
[2021-07-16] MEDS ORDERED: EPOETIN ALFA 4000UNITS/ML VIAL SUBCUT SCH (21:00)
== END 2021-07-16 01:45 | DRG 5 ==
LOC: MICUNO 07:45 → MICUSO 07-01 17:00 → 5EST 07-11 03:47
PROVIDERS: ADMIT Internal Medicine Nephrology; ATTEND Internal Medicine Nephrology
PROC: 5A1955Z Respiratory Ventilation, Greater than 96 Consecutive Hours (ICD-10-PCS; principal; 2021-06-28)
PROC: 5A1D80Z Performance of Urinary Filtration, Prolonged Intermittent, 6-18 hours Per Day (ICD-10-PCS; 2021-06-28)
PROC: 0BH17EZ Insertion of Endotracheal Airway into Trachea, Via Natural or Artificial Opening (ICD-10-PCS; 2021-06-28)
PROC: 02HV33Z Insertion of Infusion Device into Superior Vena Cava, Percutaneous Approach (ICD-10-PCS; 2021-06-29)
PROC: B548ZZA Ultrasonography of Superior Vena Cava, Guidance (ICD-10-PCS; 2021-06-29)
PROC: 5A1D70Z Performance of Urinary Filtration, Intermittent, Less than 6 Hours Per Day (ICD-10-PCS; 2021-06-29)
PROC: 30233N1 Transfusion of Nonautologous Red Blood Cells into Peripheral Vein, Percutaneous Approach (ICD-10-PCS; 2021-06-30)
PROC: 5A1D70Z Performance of Urinary Filtration, Intermittent, Less than 6 Hours Per Day (ICD-10-PCS; 2021-06-30)
PROC: 0BH17EZ Insertion of Endotracheal Airway into Trachea, Via Natural or Artificial Opening (ICD-10-PCS; 2021-06-30)
PROC: 02HV33Z Insertion of Infusion Device into Superior Vena Cava, Percutaneous Approach (ICD-10-PCS; 2021-07-01)
PROC: B548ZZA Ultrasonography of Superior Vena Cava, Guidance (ICD-10-PCS; 2021-07-01)
PROC: 5A1D80Z Performance of Urinary Filtration, Prolonged Intermittent, 6-18 hours Per Day (ICD-10-PCS; 2021-07-02)
PROC: 5A1D70Z Performance of Urinary Filtration, Intermittent, Less than 6 Hours Per Day (ICD-10-PCS; 2021-07-05)
PROC: 5A1D70Z Performance of Urinary Filtration, Intermittent, Less than 6 Hours Per Day (ICD-10-PCS; 2021-07-07)
PROC: 0B110F4 Bypass Trachea to Cutaneous with Tracheostomy Device, Open Approach (ICD-10-PCS; 2021-07-09)
PROC: 5A1D70Z Performance of Urinary Filtration, Intermittent, Less than 6 Hours Per Day (ICD-10-PCS; 2021-07-09)
PROC: 0DB78ZX Excision of Stomach, Pylorus, Via Natural or Artificial Opening Endoscopic, Diagnostic (ICD-10-PCS; 2021-07-12)
PROC: 0DH63UZ Insertion of Feeding Device into Stomach, Percutaneous Approach (ICD-10-PCS; 2021-07-12)
PROC: 5A1D70Z Performance of Urinary Filtration, Intermittent, Less than 6 Hours Per Day (ICD-10-PCS; 2021-07-12)
PROC: 5A1D70Z Performance of Urinary Filtration, Intermittent, Less than 6 Hours Per Day (ICD-10-PCS; 2021-07-14)
DX: A41.1 Sepsis due to other specified staphylococcus (principal); R65.21 Severe sepsis with septic shock; I26.99 Other pulmonary embolism without acute cor pulmonale; G82.50 Quadriplegia, unspecified; G93.41 Metabolic encephalopathy; E43 Unspecified severe protein-calorie malnutrition; D69.6 Thrombocytopenia, unspecified; K26.9 Duodenal ulcer, unspecified as acute or chronic, without hemorrhage or perforation; E11.319 Type 2 diabetes mellitus with unspecified diabetic retinopathy without macular edema; J80 Acute respiratory distress syndrome; E83.51 Hypocalcemia; I50.33 Acute on chronic diastolic (congestive) heart failure; E88.09 Other disorders of plasma-protein metabolism, not elsewhere classified; N18.6 End stage renal disease; J84.9 Interstitial pulmonary disease, unspecified; I13.2 Hypertensive heart and chronic kidney disease with heart failure and with stage 5 chronic kidney disease, or end stage renal disease; E78.5 Hyperlipidemia, unspecified; D64.9 Anemia, unspecified; Z20.822 Contact with and (suspected) exposure to COVID-19; U09.9 Post COVID-19 condition, unspecified; R13.12 Dysphagia, oropharyngeal phase; K29.70 Gastritis, unspecified, without bleeding; E11.65 Type 2 diabetes mellitus with hyperglycemia; I25.10 Atherosclerotic heart disease of native coronary artery without angina pectoris; J15.9 Unspecified bacterial pneumonia; E11.22 Type 2 diabetes mellitus with diabetic chronic kidney disease; K52.9 Noninfective gastroenteritis and colitis, unspecified; K74.60 Unspecified cirrhosis of liver; M21.371 Foot drop, right foot; Z78.1 Physical restraint status; Z87.01 Personal history of pneumonia (recurrent); Z82.49 Family history of ischemic heart disease and other diseases of the circulatory system; Z99.11 Dependence on respirator [ventilator] status; Z99.2 Dependence on renal dialysis; Z68.28 Body mass index [BMI] 28.0-28.9, adult; J47.9 Bronchiectasis, uncomplicated
CPT/HCPCS: 31500; 36415; 36600; 71045; 71275; 76937; 80048; 80053; 80202; 82040; 82375; 82805; 82962; 83540; 83550; 84134; 84145; 84439; 84443; 84478; 85018; 85025; 85027; 85379; 86705; 86706; 86709; 86803; 86850; 86900; 86920; 87070; 87077; 87186; 87340; 87426; 88305; 88312; 88313; 93306; 93970; 93971; 94002; 94003; 94640; 97162; 97166; A6261; C1725; C9113; J0360; J0456; J0692; J0885; J1200; J1644; J1650; J1815; J2250; J2270; J2370; J2543; J2704; J2765; J2920; J3010; J3370; J3490; J7050; J7060; J7626; P9016; Q9967; U0003; U0005